=== PATIENT | male | born 1950 | race Caucasian/White ===

== ENCOUNTER 2023-10-05 19:17 | Emergency (ER) | payer MEDICARE, OTHER, SELFPAY ==
[2023-10-05 19:19] VITALS: BP 100/58
[2023-10-05 19:39] VITALS: BMI 18.1
[2023-10-05 19:40] VITALS: BP 102/58
[2023-10-05 19:57] LABS: % Basophils 0.7 % (0-2); % Eosinophils 0.2 % (0-6); % Immature Granulocytes 0.5 % (0-0.5); % Lymphocytes 11.9 % (20.5-51.1); % Monocytes 7.2 % (1.7-9.3); % Neutrophils 79.5 % (42.2-75.2); Absolute Basophils 0.1 10^3/uL (0-0.2); Absolute Immature Granulocytes 0.1 10^3/uL (0-0.05); Absolute Lymphocytes 1.3 10^3/uL (1.2-3.4); Absolute Monocytes 0.8 10^3/uL (0.1-0.6); Absolute Neutrophils 8.5 10^3/uL (1.4-6.5); Hematocrit 48.7 % (39.0-52.0); Hemoglobin 16.4 g/dL (13.0-18.0); Mean Corp Hgb Conc. 33.7 g/dL (33.0-37.0); Mean Corpuscular Hgb 29.8 pg (27.0-31.0); Mean Corpuscular Volume 88.5 fL (80.0-94.0); Nucleated Red Blood Cells % 0 % (-); Platelet Count 317 10^3/uL (130-400); Red Cell Dist. Width 13.8 % (11.5-14.5); White Blood Cell Count 10.7 10^3/uL (4.8-10.8)
[2023-10-05 20:00] VITALS: BP 99/57
[2023-10-05 20:21] LABS: Troponin I 0.026 ng/ml
[2023-10-05] MEDS: NSS 1000 IV (20:55)
[2023-10-05 21:00] VITALS: BP 101/70
[2023-10-05 21:02] LABS: ALT (SGPT) 27 U/L (0-50); AST (SGOT) 39 U/L (17-59); Alkaline Phosphatase 112 U/L (38-126); Blood Urea Nitrogen 25 mg/dl (9-20); Calcium 9.3 mg/dl (8.4-10.2); Carbon Dioxide 24 mmol/L (22-30); Chloride 99 mmol/L (98-107); Estimated Creatinine Clearance 47 ml/min; Glucose 120 mg/dl (70-99); Potassium 4.4 mmol/L (3.5-5.1); Sodium 137 mmol/L (135-145); Total Bilirubin 0.6 mg/dl (0.2-1.3); Total Protein 7.3 g/dl (6.3-8.2); eGFR > 60.00
[2023-10-05 22:00] VITALS: BP 104/60
--- NOTE | 2023-10-05 22:18 | ED.GENMED ---
History of Present Illness
General
Chief Complaint: Fainting/Passed Out
Source: patient and family
Exam Limitations: none
Time Seen by Provider: 10/05/23 19:51
Travel History
Have you had any contact with someone who has COVID-19?: No
Do you have any symptoms of coronavirus? Fever > 100 degrees, chills, cough, shortness of breath, sore throat, loss of taste or smell, muscle aches, or headache?: No
History of Present Illness
History of Present Illness:
73-year-old male who tested positive for COVID about 36 hours ago. Family also was sick. Patient went to urgent care was found to have a lower blood pressure he states at home he fell at the bottom of the steps and does not really recall also
assumes he passed out. On my evaluation patient offers no complaints. He is a longtime smoker. He denies feeling shortness of breath. He does not have any chest pain. There is no hemoptysis. He has no leg swelling. No pleuritic pain. No
fever. Currently feels well for
Past History
Past History
ED Past Medical History: Other (Back pain, chronic smoker)
ED Past Surgical History: Orthopedic
Social History
Tobacco: Smoker
Phy Exam
Physical Exam
Physical Exam:
CONSTITUTIONAL Patient alert and oriented to person, place and time. Well-appearing. Vital signs reviewed.
HEAD atraumatic, normocephalic.
EYES eyelids normal to inspection, Extraocular muscles intact, Conjunctiva normal, Sclera normal.
NECK normal range of motion, Trachea midline, no jugular venous distention.
RESPIRATORY CHEST No respiratory distress noted, Chest expansion equal, diminished at bases.
CARDIOVASCULAR regular rate and rhythm, Heart sounds normal.
ABDOMEN No distention.
BACK normal inspection, no obvious deformities
UPPER EXTREMITY range of motion normal, Motor strength normal, no cyanosis, no edema.
LOWER EXTREMITY range of motion normal, Motor strength normal, no cyanosis, no edema.
NEURO Speech normal, No focal motor deficits, [place] coma scale 15, Memory normal, Cranial Nerves intact to screening exam.
SKIN skin warm, dry, and normal in color.
Course
Orders/Labs/Results
Orders:
Orders
10/05/23 19:23
EKG [Electrocardiogram (*1)] Urgent
Reason for Study: Syncope
EKG- Treatment ONCE
10/05/23 19:50
Complete Blood Count/With Diff Urgent
Comprehensive Metabolic Panel Urgent
Troponin I Urgent
10/05/23 20:51
0.9% Sodium Chloride 1000 ml [Nss] 1,000 ml IV BOLUS
CR Chest Portable - 1 View Urgent
Comment:
Reason For Exam: syncope, COVID positive
Reason Study Needs to be Portable: Patient Unstable
Abnormal Lab Results
10/05/23
19:50
Abs Immat Gran (auto) 0.1 H 10^3/uL
(0-0.05)
Absolute Neuts (auto) 8.5 H 10^3/uL
(1.4-6.5)
Absolute Monos (auto) 0.8 H 10^3/uL
(0.1-0.6)
Neutrophils % 79.5 H %
(42.2-75.2)
Lymphocytes % 11.9 L %
(20.5-51.1)
BUN 25 H mg/dl
(9-20)
Glucose 120 H mg/dl
(70-99)
10/05/23 19:50
10/05/23 19:50
Vital Signs
Initial and Last Documented VS:
Initial Vital Signs
Temp Pulse Resp BP Pulse Ox
98.7 F 77 20 100/58 95
10/05/23 19:19 10/05/23 19:19 10/05/23 19:19 10/05/23 19:19 10/05/23 19:19
Last Documented Vital Signs
Temp Pulse Resp BP Pulse Ox
98.7 F 77 20 101/70 94
10/05/23 19:19 10/05/23 19:19 10/05/23 19:19 10/05/23 21:00 10/05/23 21:00
MDM/Problems Addressed
MDM/Problems Addressed:
Possible syncope, COVID-19, chronic tobacco use
*Radiology
Radiology exam reviewed: preliminary read by ED provider (No pneumothorax) and radiology read reviewed
*Pulse Oximetry
Patient hypoxic: no
*EKG
Interpreted by ED Provider?: Yes
Interpretation: normal
Rate: normal
Rhythm: sinus
[place]: normal axis
Interval: normal interval
Ischemia: no ischemia
*Customs Compliance Director Interpretation
Rate: normal
Interpretation: normal
Rhythm: sinus
*Critical Care Note
Total Time (30-74mins, 75-104mins- exclusive of procedures): Not Applicable
Data Reviewed
Source: patient and family
Further Testing Considered But Not Given:
Consider CT of the chest based on reading. However, no fever, no hypoxia.
Patient Management
Escalation/DeEscalation of care consider admission/obs:
No clinical concern for pulmonary embolism. EKG normal. Vital signs okay. Given IV fluids. Patient appears well and like to go home. Longtime smoker so I do assume chronic lung disease and will treat with Paxlovid. Recommended close outpatient
follow-up and repeat chest x-ray in 2 weeks
ED Attending Note
-
Portions of this chart may have been created with voice recognition software.� Occasional wrong word or��sound alike� substitutions may have occurred due to the inherent limitations of voice recognition software.
Discharge Plan
Departure
Patient Disposition: Home (Routine Discharge)
Date of Disposition: 10/05/23
Time of Disposition: 22:26
Patient with high blood pressure during this ER visit?: No
Discharge Problem:
COVID-19, Syncope
Instructions: COVID-19 (DC)
Prescriptions:
No Action
sennosides [senna] 1 TABLET tablet
2 tab PO BID 0RF
tramadol 50 MG tablet
50 mg PO Q6HPRN PRN (Reason: moderate-severe pain) Qty: 35 0RF
Rx Instructions:
dx lami
ongoing
NO ETOH whilke taking pain med
acetaminophen [Tylenol Extra Strength] 500 MG tablet
1,000 mg PO Q6H 0RF
docusate sodium 100 MG capsule
100 mg PO BID 0RF
Referrals:
Mario Pierre MD [Family Provider] -
Activity Restrictions/Additional Instructions:
Please drink plenty of fluids. Please consider smoking cessation. Please see your doctor in the next 3 to 5 days for follow-up and reevaluation. In addition, it is important that you have a repeat chest x-ray in 2 weeks. Further follow-up may be
necessary based on that result. Return immediately for difficulty breathing, coughing up blood shortness of breath, chest pain, change in mentation, lightheadedness, passing out episode or any other concerns.
Interventions
Interventions:
*Risk Screen - Suicide Last Done: 10/05/23 19:19
*General Assessment Last Done: 10/05/23 19:19
*Neglect/Abuse Screening Last Done: 10/05/23 19:19
ED- Fall Risk Assessment Last Done: 10/05/23 19:39
*ED COVID-19 Vaccine History Last Done: 10/05/23 19:19
ED- Cardiac Assessment Last Done: 10/05/23 19:39
ED- Neurological Assessment Last Done: 10/05/23 19:39
[2023-10-05 23:00] VITALS: BP 107/67
[2023-10-05] MEDS: PAXLOVID 150-100 MG DOSE PACK 1 DOSE PO (23:00)
== END 2023-10-05 23:08 | disposition home or self-care (01) ==
LOC: EMR 19:17
PROVIDERS: EMERGENCY PHYSICIAN Emergency Medicine; FAMILY PHYSICIAN Family Medicine
DX: U07.1 COVID-19 (principal); R55 Syncope and collapse; F17.200 Nicotine dependence, unspecified, uncomplicated
CPT/HCPCS: 99283; 96360; 71045; 80053; 84484; 85025; 93005